=== PATIENT | male | born 1985 | race Caucasian/White ===

== ENCOUNTER 2019-10-24 18:27 | Emergency (ER) | payer OTHER ==
[~2019-10-24] VITALS: Ht 177.8 cm; Wt 118.0 kg
[2019-10-24] MEDS ORDERED: IBUPROFEN 600MG TABLET PO ONE (19:00)
[2019-10-24 19:47] VITALS: BP 144/79
== END 2019-10-24 19:49 | disposition home or self-care (01) ==
LOC: ER 18:27
DX: S60.221A Contusion of right hand, initial encounter (principal); V43.52XA Car driver injured in collision with other type car in traffic accident, initial encounter; Y93.89 Activity, other specified; Y92.488 Other paved roadways as the place of occurrence of the external cause
CPT/HCPCS: 73130; 99283